=== PATIENT | male | born 1945 | race Caucasian/White ===

== ENCOUNTER → 2022-02-08 | Outpatient (CLI) | payer MEDICARE ==
--- NOTE | 2022-02-08 20:21 | MR ---
EXAMINATION TYPE: MR Prostate wo/w con DATE OF EXAM: 02/08/2022 COMPARISON: None. IMAGE QUALITY: Good. INDICATION: ELEVATED PROSTATE SPECIFIC ANTIGEN PSA: 4.55 ng/ml on 06/07/2021. Recent Biopsy and Date: none Pathology Report (If Applicable): n/a TECHNIQUE: Examination was performed using a 3T MRI without an endorectal coil. Multiparametric imaging was perf ormed with T2 mutliplanar sequences, axial diffusion weighted imaging and dynamic contrast enhanced i maging, utilizing 9 mL intravenous Gadavist gadolinium contrast. FINDINGS: Slightly enlarged prostate gland system with BPH. There are areas of heterogeneous diminish ed signal intensity in the peripheral zone greater on the right lateral mid zone. No significant rest ricted diffusion. (PIRADS 2) PROSTATE VOLUME: 4.7 cm SI x 3.5 cm AP x 4.8 cm LR Vol= 41.34 cc PSA DENSITY: 0.11 ng/ml/cc Central transitional zone is overall heterogeneous without distinct. Suspicious diminished T2 signal or restricted diffusion. Bladder has mild to moderate wall thickening and wall trabeculation greatest superiorly with 2.1 cm d iverticulum along the anterior superior aspect sagittal image 28 and smaller diverticulum inferior to this. Sigmoid colonic diverticulosis is seen. There is small fat containing right and moderate to large siz ed fat-containing left inguinal hernias. No concerning pelvic fluid collection. Visualized osseous st ructures are intact. IMPRESSION: A focus of clinically significant cancer is not identified. Highest Assessment Category: 2 MRI Stage: T0 N0 M0 based on review of pelvic images. False negative rates for MRI range from 5-20% depending on risk profile. Assessment Categories: 1 ? Very low (clinically significant cancer is highly unlikely to be present) 2 ? Low (clinically significant cancer is unlikely to be present) 3 ? Intermediate (the presence of clinically significant cancer is equivocal) 4 ? High (clinically significant cancer is likely to be present) 5 ? Very high (clinically significant cancer is highly likely to be present)
== END | disposition home or self-care (01) ==
LOC: RADMRIMAIN 07:55
PROVIDERS: ATTEND Urology
DX: R97.20 Elevated prostate specific antigen [PSA] (principal)
CPT/HCPCS: 72197; A9585

== ENCOUNTER → 2022-06-11 | Outpatient (CLI) | payer MEDICARE | END | disposition home or self-care (01) | LOC: LABWHC1 09:26 | PROVIDERS: ATTEND Urology | DX: R97.20 Elevated prostate specific antigen [PSA] (principal) | CPT/HCPCS: 36415; 84153 ==

== ENCOUNTER → 2023-05-29 | Outpatient (CLI) | payer MEDICARE | END | disposition home or self-care (01) | LOC: LABWHC1 08:37 | PROVIDERS: ATTEND Urology | DX: R97.20 Elevated prostate specific antigen [PSA] (principal) | CPT/HCPCS: 36415; 84153 ==

== ENCOUNTER → 2024-06-11 | Outpatient (CLI) | payer MEDICARE | END | disposition home or self-care (01) | LOC: LABWHC1 10:33 | PROVIDERS: ATTEND Urology | DX: R97.20 Elevated prostate specific antigen [PSA] (principal) | CPT/HCPCS: 36415; 84153 ==